=== PATIENT | female | born 1980 | race Caucasian/White ===

== ENCOUNTER 2017-05-22 17:52 | Inpatient (IN) | payer OTHER ==
[~2017-05-22] VITALS: Ht 154.9 cm; Wt 31.8 kg
== END 2017-07-17 10:31 | disposition left against medical advice (07) | DRG 974 ==
LOC: ER 17:52 → ICU-2 05-23 08:09 → ICU 05-23 08:09 → MEDJ 06-05 13:32 → MEDI 06-05 13:32 → MEDJ 06-05 13:32
PROC: 3E0F7GC Introduction of Other Therapeutic Substance into Respiratory Tract, Via Natural or Artificial Opening (ICD-10-PCS; 2017-05-23)
PROC: 4A033R1 Measurement of Arterial Saturation, Peripheral, Percutaneous Approach (ICD-10-PCS; 2017-05-23)
PROC: 30233N1 Transfusion of Nonautologous Red Blood Cells into Peripheral Vein, Percutaneous Approach (ICD-10-PCS; 2017-05-24)
PROC: 5A1955Z Respiratory Ventilation, Greater than 96 Consecutive Hours (ICD-10-PCS; principal; 2017-05-25)
PROC: 0BH17EZ Insertion of Endotracheal Airway into Trachea, Via Natural or Artificial Opening (ICD-10-PCS; 2017-05-25)
PROC: 8E0ZXY6 Isolation (ICD-10-PCS; 2017-05-28)
PROC: 4A12X4Z Monitoring of Cardiac Electrical Activity, External Approach (ICD-10-PCS; 2017-06-05)
PROC: BB24ZZZ Computerized Tomography (CT Scan) of Bilateral Lungs (ICD-10-PCS; 2017-06-09)
PROC: BW4GZZZ Ultrasonography of Pelvic Region (ICD-10-PCS; 2017-06-10)
PROC: BT43ZZZ Ultrasonography of Bilateral Kidneys (ICD-10-PCS; 2017-06-11)
PROC: CW1NLZZ Planar Nuclear Medicine Imaging of Whole Body using Gallium 67 (Ga-67) (ICD-10-PCS; 2017-06-11)
PROC: 0B9F8ZX Drainage of Right Lower Lung Lobe, Via Natural or Artificial Opening Endoscopic, Diagnostic (ICD-10-PCS; 2017-06-13)
PROC: BW28ZZZ Computerized Tomography (CT Scan) of Head (ICD-10-PCS; 2017-06-23)
PROC: B246ZZZ Ultrasonography of Right and Left Heart (ICD-10-PCS; 2017-06-25)
PROC: CW1NLZZ Planar Nuclear Medicine Imaging of Whole Body using Gallium 67 (Ga-67) (ICD-10-PCS; 2017-07-03)
PROC: BW40ZZZ Ultrasonography of Abdomen (ICD-10-PCS; 2017-07-04)
PROC: BW21ZZZ Computerized Tomography (CT Scan) of Abdomen and Pelvis (ICD-10-PCS; 2017-07-07)
DX: B20 Human immunodeficiency virus [HIV] disease (principal); B59 Pneumocystosis; J96.01 Acute respiratory failure with hypoxia; A41.9 Sepsis, unspecified organism; J15.6 Pneumonia due to other Gram-negative bacteria; B37.49 Other urogenital candidiasis; D64.89 Other specified anemias; R31.0 Gross hematuria; R74.0 Nonspecific elevation of levels of transaminase and lactic acid dehydrogenase [LDH]; N20.0 Calculus of kidney; Z16.24 Resistance to multiple antibiotics